=== PATIENT | female | born 1940 | race Caucasian/White ===

== ENCOUNTER 2020-06-30 10:07 | Outpatient (CLI) | payer BC, SELFPAY ==
[2020-06-30 12:49] LABS: Basophils # 0.1 10^3/uL (0.0-0.1); Basophils % 0.5 %; Eosinophils # 0.1 10^3/uL (0.0-0.8); Eosinophils % 0.6 %; Hematocrit 44.4 % (37.0-47.0); Hemoglobin 14.5 g/dL (11.5-15.3); Lymphocytes # 2.7 10^3/uL (0.8-4.8); Lymphocytes % 28.1 %; Mean Corpuscular HGB Conc 32.7 g/dL (30.0-36.0); Mean Corpuscular Hemoglobin 31.7 pg (28.0-34.0); Mean Corpuscular Volume 97.2 fL (81-99); Mean Platelet Volume 9.9 fL (7.4-10.4); Monocytes # 0.6 10^3/uL (0.2-0.9); Monocytes % 6.1 %; Neutrophils # 6.12 10^3/uL (1.8-7.7); Neutrophils % 64.3 %; Nucleated Red Blood Cells % 0 %; Platelet Count 256 10^3/cmm (130-400); Red Blood Count 4.57 10^6/uL (4.1-5.3); Red Cell Distribution Width 13.2 % (12.1-15.1); White Blood Count 9.5 10^3/uL (4.0-10.0)
[2020-06-30 13:22] LABS: Alanine Aminotransferase 17 U/L (0-33); Alkaline Phosphatase 83 IU/L (35-105); Anion Gap 10.9 (5-19); Aspartate Amino Transferase 18 U/L (0-32); Blood Urea Nitrogen 19 mg/dL (8-23); CA 125 102.2 U/mL (0-35); Calcium 9.5 mg/dL (8.5-10.5); Carbon Dioxide 35 mmol/L (22-29); Chloride 94 mmol/L (98-107); Globulin 2.5 g/dL (1.3-4.6); Glucose 117 mg/dL (65-115); Osmolality Calculated 287 mOsm/kg (285-295); Sodium 137 mmol/L (136-145); Total Bilirubin 0.5 mg/dL (0.15-1.2); Total Protein 6.5 g/dL (6.6-8.7)
[2020-06-30 13:32] LABS: Potassium 2.9 mmol/L (3.5-5.1)
--- NOTE | 2020-06-30 18:10 | ONC CON_ITS ---
Dr. Mckeon New Patient Note Patient: Maia Elmore Unit #: [id number]: [id number] Dicatated By: Bartolo Mckeon M.D.Date of Visit: Jun 30, 2020 Onc MED New Patient/Consult Referring Physician: Dr. SUGAR AGOSTO M.D. Chief Complaint: Ovarian cancer. 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 She has a prior history of cervical cancer for which she underwent hysterectomy with unilateral oophorectomy in 1969. She has had no evidence of recurrence of that malignancy. She had presented with complaints of abdominal pain and weight loss. She had been found on CT scan to have a complicated cystic mass in the left pelvis measuring up to 3.3 cm and a dilated appendix up to 15 mm. She was seen by Dr. Sugar Agosto for surgical consultation on 03/29/2020. Her repeat CT abdomen/pelvis on 04/19/2020 showed a left adnexal enhancing lesion measuring up to 4.5 cm, enlarged compared to the prior study from 02/11/2020. And additional tubular area was noted in the right hemipelvis. Also noted was evidence of sigmoid colitis. Infiltration/edema within the mesenteric fat in the pelvis was felt to be nonspecific. On 04/28/2020 she underwent diagnostic laparoscopy converted to exploratory laparotomy with omentectomy and appendectomy. Abdominal exploration revealed the transverse colon with omentum to be densely adherent to the pelvis. The omentum was able to be removed after he was dissected free from the bladder. The right ovary was visualized and found to be densely adherent. The left ovary was not identified. A large pelvic mass was densely adherent to the pelvic sidewall within the pelvis. This was deemed to be unresectable. There was questionable intraluminal mass within the appendix, and the procedure also included appendectomy. Pathology showed metastatic adenocarcinoma involving the omentum and appendix. By IHC, the tumor cells were positive for CK7, IMP3, and estrogen receptors and there was positivity in greater than 50% of the cells for p16 and WT1. The tumor cells were negative for TTF-1, GATA3, CK20, and CDX2. Overall the findings were felt to be most consistent with metastatic ovarian serous carcinoma. Following the surgery she has continued to have significant pain in the lower abdomen, which tends to get worse after eating. She has constipation, and the pain also gets worse after she takes her stool softener/laxative. She has poor appetite and poor oral intake, and she has had a 30 pound weight loss. She has significant weakness/fatigue. At this point she is still able to do some light work. She does not have fever or night sweats. She has not been having nausea/vomiting, and thus far she has had no significant problems with her bladder function. Past Medical History: Her medical history includes chronic insomnia, chronic obstructive pulmonary disease, degenerative arthritis, degenerative disease of the spine, history of cervical cancer, history of squamous cell skin cancer, hypertension, and macular degeneration. Past Surgical History: She underewent exploratory laparotomy with omentectomy and appendectomy on 04/28/2020. Her other surgical/procedural history includes lumbar surgery x 3, excision of squamous cell skin cancer from the left index finger with grafting in 2019, arthroscopic left knee surgery in 2017, and hysterectomy with unilateral oophorectomy for cervical cancer in 1969. Medications: Atenolol-Chlorthalidone (50-25 mg) Tablet Oral daily, Excedrin Tension Headache (500-65 mg) Tablet Oral b.i.d., PreserVision AREDS 2 Tablet Oral b.i.d., Restoril (15 mg) Capsule Oral at bedtime Allergies: Atorvastatin Calcium, Codeine Sulfate, Fenofibrate, Insect stings, Morphine Sulfate, Niacin, oxyCODONE HCl, Penicillins, quiNIDine Sulfate, sulfADIAZINE, traMADol HCl, Vitamin D3, and Zantac. Social History: Ms. Elmore is and she is retired. She was employed as a dispatcher for a law enforcement agency. She has a history of smoking 2 packs of cigarettes daily for 31 years. She has no intention of quitting. She does not drink alcohol. Family History: Father at age 70, cause unknown to the patient. Mother at 91 of old age. Son committed suicide at age 32. A brother and a sister are , cause also unknown to the patient. Review Of Symptoms: Constitutional - She has weakness/fatigue and her activity is limited. She is able to do some light work. Her appetite is not good and she has limited oral intake. She has had a 30 pound weight loss. No fever or night sweats. ECOG score is 1, Eyes - She has macular degeneration for which she has been receiving injections, ENMT - She has hearing loss. No tinnitus. No sinus congestion/drainage, but she complains that her mouth is dry. No mouth sores. No sore throat or difficulty swallowing, Hematologic/Lymphatic - No abnormal bruising or bleeding, Respiratory - No shortness of breath. No cough. No pleuritic pain or hemoptysis, Cardiovascular - No angina pain. No palpitations, Gastrointestinal - She does not have nausea or vomiting and she does not complain of acid reflux. She does have constipation. She continues to have significant pain in the lower abdominal area which gets worse after eating. Her stool softener/laxative also tends to make her pain worse. No blood in the stool or black stools, Genitourinary (F) - No dysuria or hematuria. No urinary frequency. No urgency or incontinence, Musculoskeletal - She has chronic back pain and she also has pain in her left knee, Integumentary - She has recurrence of a squamous cell skin cancer involving her left index finger, Neurologic - No headache. She has occasional orthostatic lightheadedness. She has numbness/tingling in her right hand. No other focal neurologic symptoms, Psychiatric - No anxiety or depression. She has chronic insomnia. Vital Signs: Performed on Jun 30, 2020 11:02: 10, 9, 0.00, 0.00 sq.m, 96 %, 65 /min, 18 /min, 132/84 mm(hg), 98.1 F (LOW), and 67.4 lbs (HIGH). Physical Examination: Constitutional - She appears generally weak and frail, Eyes - Sclerae nonicteric. Conjunctivae clear, ENMT - No lesions noted in the oral cavity, Neck - No mass or thyromegaly, Hematologic/Lymphatic - No cervical, clavicular, or axillary adenopathy, Respiratory - Lungs sound clear with diminished air movement bilaterally, Cardiovascular - Heart rhythm is regular. There is a I/ systolic murmur. There is no gallop or rub noted, Abdomen - Soft. There is just mild tenderness in the lower abdominal area. Liver and spleen are not enlarged. There is no abdominal mass noted and there is no obvious ascites. There is no inguinal adenopathy, Back/Spine - No bony tenderness in the spine or ribs, Extremities - No edema. Pedal pulses are palpable bilaterally, Integumentary - There are actinic type skin changes in the distal aspect of the left index finger, Neurologic - No focal neurologic deficits noted. Problem List: 1. 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 She underwent exploratory laparotomy with omentectomy and appendectomy on 04/28/2020. 2. Hypertension. 3. COPD. 4. Degenerative arthritis/degenerative disease of the spine. 5. Macular degeneration. 6. Chronic insomnia. 7. History of cervical cancer with no recurrence following hysterectomy/unilateral oophorectomy in 1969. 8. Squamous cell skin cancer involving the left index finger with apparent recurrence following resection/skin grafting in 2019. Problems Addressed with this Encounter and Plan: Patient with metastatic adenocarcinoma involving left hemipelvis, omentum, and appendix which was pathologically consistent with ovarian serous carcinoma. A definite primary lesion was not identified. She underwent exploratory laparotomy with omentectomy and appendectomy on 04/28/2020. The disease in the left pelvis was deemed unresectable. Since the surgery she has continued to have abdominal pain which limits her activity and which significantly limits her oral intake. She has had a 30 pound weight loss and her overall performance status continues to decline. The surgical findings and pathology results were reviewed with the patient, and we discussed the clinical complications. She has significant residual disease following the surgery and without additional treatment her condition will continue to decline. With ovarian cancer, there is relatively high probability of benefit with chemotherapy, though in her situation there would be significant risk for chemotherapy related toxicities. As such, she has been very reluctant to agree to the treatment. As an alternative, I would like to have her tumor tested for HER-2/jose j and for microsatellite instability to determine whether she would potentially be eligible for targeted therapy with a less aggressive chemotherapy regimen or for immunotherapy. I also would like to check baseline laboratory studies today to include CBC, comprehensive metabolic profile and CA-125 level. However, given her symptoms and marginal performance status, she does appear to have poor prognosis. Signed By: Bartolo Mckeon M.D. <<Signature on File>>
== END 2020-06-30 10:08 | disposition home or self-care (01) ==
PROVIDERS: PCP Family Medicine; Visit Provider Internal Medicine Medical Oncology
DX: C56.9 Malignant neoplasm of unspecified ovary (principal); I10 Essential (primary) hypertension; J44.9 Chronic obstructive pulmonary disease, unspecified; M47.9 Spondylosis, unspecified; H35.30 Unspecified macular degeneration; F51.04 Psychophysiologic insomnia; Z85.41 Personal history of malignant neoplasm of cervix uteri; Z85.828 Personal history of other malignant neoplasm of skin; Z79.899 Other long term (current) drug therapy
CPT/HCPCS: 36415; 80053; 84443; 85025; 86304; 99205